=== PATIENT | male | born 1950 | race Two or more races ===

== ENCOUNTER 2020-02-01 05:30 | Observation (INO) | payer OTHER ==
[2020-01-30 10:30] LABS: BASOPHILS % (AUTO) 0.4 % (0.0-2.0); EOSINOPHILS % (AUTO) 7.3 % (1.0-6.0); HEMATOCRIT 38.7 % (41-53); HEMOGLOBIN 13.5 g/dL (13.5-17.5); LYMPHOCYTES # (AUTO) 1.2 K/uL (1.0-4.8); MEAN CORPUSCULAR HEMOGLOBIN 30.8 pg (26.0-34.0); MEAN CORPUSCULAR VOLUME 88 fL (80-100); MONOCYTES # (AUTO) 0.3 K/uL (0.1-1.0); MONOCYTES % (AUTO) 5.2 % (2.0-9.0); NEUTROPHILS # (AUTO) 3.7 K/uL (1.8-7.7); NEUTROPHILS % (AUTO) 66.1 % (40.0-70.0); PLATELET COUNT (AUTO) 153 K/uL (150-450); RED CELL DISTRIBUTION WIDTH 13.2 % (11.5-14.5)
[2020-01-30 10:38] LABS: ANION GAP 5 mmol/L (8-16); CALCIUM, TOTAL 9.2 mg/dL (8.8-10.5); CARBON DIOXIDE 29 mmol/L (22-29); CHLORIDE 102 mmol/L (98-107); CREATININE 1.17 mg/dL (0.60-1.30); GLOMERULAR FILTR. RATE CALC > 60 mL/min (>60); GLUCOSE,RANDOM 310 mg/dL (70-110); POTASSIUM 3.5 mmol/L (3.5-5.1); SODIUM SERUM 136 mmol/L (136-145); UREA NITROGEN, BLOOD 19 mg/dL (7-18)
[2020-01-30 10:44] LABS: ALANINE AMINOTRANSFERASE 28 U/L (12-78); ALBUMIN 4.2 g/dL (3.4-5.0); ALKALINE PHOSPHATASE 129 U/L (46-116); ASPARTATE AMINOTRANSFERASE 14 U/L (15-37); BILIRUBIN,TOTAL 0.7 mg/dL (0.1-1.0); PROTHROMBIN TIME 10.7 SEC (9.4-11.6); TOTAL PROTEIN, SERUM 7.1 g/dL (6.4-8.2)
[~2020-02-01] VITALS: Ht 176.5 cm; Wt 83.9 kg
[~2020-02-01 05:30] MED LIST: ABIR250T PO; CeFAZolin 2 GM/DEXTROSE 50 ML IV ONE; OMEP20 PO; RINGERS SOLUTION,LACTATED 1,000 ML IV ONE; ROSU10TA22 PO
[2020-02-01] MEDS ORDERED: BUPIVACAINE LIPOSOME/PF 1.3%-13.3MG/ML SUSPENSION 20 ML VIAL INJ ONE (06:15)
[2020-02-01 06:25] LABS: GLUCOMETER DEV NAME(LOC) SDS.; GLUCOSE,POINT OF CARE 190 MG/DL (70-110)
[2020-02-01] MEDS ORDERED: BUPIVACAINE HCL/PF 0.25% 30 ML VIAL ONE (06:29)
[2020-02-01] MEDS ORDERED: CeFAZolin 2 GM/DEXTROSE 50 ML IV ONE (06:30)
[2020-02-01] MEDS ORDERED: ZOLPIDEM TARTRATE 10 MG TABLET PO PRN (07:30)
[2020-02-01] MEDS ORDERED: CYCLOBENZAPRINE HCL 10 MG TABLET PO PRN (07:30)
[2020-02-01] MEDS ORDERED: DiphenhydrAMINE HCL 50 MG/ML VIAL IVP PRN (07:30)
[2020-02-01] MEDS ORDERED: HYDROmorphone 2 MG/ML SYRINGE IVP PRN ×2 (07:30→08:45)
[2020-02-01] MEDS ORDERED: MAG HYDROX/AL HYDROX/SIMETH 30 ML SUSP UDCUP PO PRN (07:30)
[2020-02-01] MEDS ORDERED: BENZOCAINE/MENTHOL LOZENGE PO PRN (07:30)
[2020-02-01] MEDS ORDERED: ONDANSETRON HCL 4 MG/2 ML VIAL IVP PRN ×2 (07:30)
[2020-02-01] MEDS ORDERED: ZOLPIDEM TARTRATE 5 MG TABLET PO PRN (07:30)
[2020-02-01] MEDS ORDERED: SUGAMMADEX SODIUM 200 MG/2 ML VIAL IVP ONE (07:49)
[2020-02-01] MEDS ORDERED: RINGERS SOLUTION,LACTATED 1,000 ML IV ONE (07:50)
[2020-02-01] MEDS ORDERED: FentaNYL CITRATE-PF 100 MCG/2 ML VIAL IVP PRN (08:45)
[2020-02-01] MEDS ORDERED: MEPERIDINE-PF 25 MG/ML VIAL IVP PRN (08:45)
[2020-02-01] MEDS ORDERED: HYDROmorphone 2 MG/ML SYRINGE ONE (09:18)
[2020-02-01] MEDS ORDERED: METOPROLOL TARTRATE 5 MG/5 ML VIAL ONE (09:57)
[2020-02-01] MEDS ORDERED: METOPROLOL TARTRATE 5 MG/5 ML VIAL IVP ONE (10:00)
[2020-02-01 10:30] VITALS: BP 164/87
[2020-02-01] MEDS: AmLODIPine BESYLATE 5 MG TABLET PO SCH (10:49)
[2020-02-01] MEDS: ACETAMINOPHEN 1000 MG/ISO-OSM 100 ML IV SCH ×2 (13:13→20:23)
[2020-02-01 15:47] VITALS: BP 132/74
[2020-02-01] MEDS ORDERED: ACETAMINOPHEN/CODEINE 300-30 MG TABLET PO PRN (19:00)
[2020-02-01 20:02] VITALS: BP 134/78
[2020-02-02 00:22] VITALS: BP 142/77
[2020-02-02 04:53] VITALS: BP 143/77
[2020-02-02] MEDS ORDERED: DEXAMETHASONE SOD PHOS 4 MG/ML VIAL IVP ONE (05:13)
[2020-02-02] MEDS ORDERED: PROPOFOL 1% 20 ML VIAL IVP ONE (05:13)
[2020-02-02] MEDS ORDERED: MIDAZOLAM HCL 2 MG/2 ML VIAL IVP ONE (05:13)
[2020-02-02] MEDS ORDERED: ROCURONIUM BROMIDE 10 MG/ML 5 ML VIAL IVP ONE (05:13)
[2020-02-02] MEDS ORDERED: MORPHINE SULFATE/PF 0.5 MG/ML 10 ML AMP IVP ONE (05:13)
[2020-02-02] MEDS ORDERED: LIDOCAINE/PF 2% 5 ML VIAL IM ONE (05:13)
[2020-02-02] MEDS ORDERED: SUCCINYLCHOLINE CHLORIDE 20 MG/ML 10 ML VIAL IVP ONE (05:13)
[2020-02-02] MEDS ORDERED: FentaNYL CITRATE-PF 100 MCG/2 ML VIAL IVP ONE (05:13)
[2020-02-02] MEDS ORDERED: ONDANSETRON HCL 4 MG/2 ML VIAL IVP ONE (05:13)
[2020-02-02] MEDS: OXYGEN THERAPY IH SCH (08:00)
[2020-02-02 08:08] VITALS: BP 163/64
[2020-02-02 08:12] VITALS: BP 139/78
[2020-02-02] MEDS: AmLODIPine BESYLATE 5 MG TABLET PO SCH (08:38)
[2020-02-02 11:21] VITALS: BP 141/74
[2020-02-02 15:19] VITALS: BP 148/65
[2020-02-02] MEDS ORDERED: AMLO-257 PO (16:54)
== END 2020-02-02 17:20 | disposition home or self-care (01) ==
LOC: UNDOADMIN 05:30 → 6N 05:30 → 4E 05:30 → 6N 05:30 → EDSTATUS 07:15 → 6N 18:25 → 4E 18:25 → UNDODISIN 02-02 17:20
PROVIDERS: ADMIT Orthopaedic Surgery Orthopaedic Surgery of the Spine; ATTEND Orthopaedic Surgery Orthopaedic Surgery of the Spine
DX: M48.07 Spinal stenosis, lumbosacral region (principal); E78.5 Hyperlipidemia, unspecified; R03.0 Elevated blood-pressure reading, without diagnosis of hypertension; K21.9 Gastro-esophageal reflux disease without esophagitis; M51.37 Other intervertebral disc degeneration, lumbosacral region; Z90.49 Acquired absence of other specified parts of digestive tract; Z79.899 Other long term (current) drug therapy
CPT/HCPCS: 22558; 22853; 36415 ×2; 80053; 82962; 83036; 85025; 85610; 85730; 87081; 87635; 93005; 96374; 96375; 96376; 97161; 99219; C1716; C9290; J0131; J0330; J0690; J1100; J1170; J2250; J2274; J2405 ×2; J2704; J3010; J3490 ×4; J7120; Z7610 ×2; G0378